=== PATIENT | female | born 1930 | race Caucasian/White ===

== ENCOUNTER 2019-08-12 06:02 | Inpatient (IN) ==
--- NOTE | 2019-07-07 14:11 | PAT Medication Instructions ---
Medication Instructions Date of Service July 07, 2019 Home Medications acetaminophen [Tylenol] 325 mg PO Q6H PRN lisinopril 2.5 mg PO QAM meloxicam 15 mg PO QAM ASK your surgeon for instructions meloxicam 15 mg PO QAM DO NOT take the morning of surgery lisinopril 2.5 mg PO QAM Take morning of surgery With a small sip of water, OTHERWISE NOTHING TO EAT OR DRINK AFTER MIDNIGHT: acetaminophen [Tylenol] 325 mg PO Q6H PRN (okay to take up to 4 hours prior to surgery if needed) Take evening before surgery acetaminophen [Tylenol] 325 mg PO Q6H PRN (if needed) Other Notes If you have any questions please call us at [phone] or [phone] or [phone] or [phone]
--- NOTE | 2019-07-08 09:05 | Anesthesiology Consultation ---
Date of Service July 08, 2019 Assessment & Plan (1) Encounter for pre-operative examination: PCP Clearance 07/03/19 = "Medically stable for JASON on 07/15/19." Chart Review Chart Review: Acceptable Risk for Surgery and Patient seen in Pre Admission Testing Teaching & Discussion Instructed NPO after midnight before surgery, except medications with 15 cc of water. Medication instructions provided according to the PAT guidelines. History Surgery Operation Date: 07/15/19 09:15 Proposed Procedures p Right Anterior Total Hip Arthroplasty - Morgan Lee DO Height/Weight Height: 5 ft 10 in Weight: 79.7 kg Allergies Allergy/AdvReac Type Severity Reaction Status Date / Time No Known Allergies Allergy Verified 07/04/19 15:45 Medications Home Medications Medication Instructions Recorded Confirmed Last Taken acetaminophen [Tylenol] 325 mg PO Q6H PRN 07/04/19 07/04/19 Unknown lisinopril 2.5 mg PO QAM 07/04/19 07/04/19 Unknown meloxicam 15 mg PO QAM 07/04/19 07/04/19 Unknown Past Medical History Medical History HTN (hypertension) Osteoarthritis Exercise / Class Metabolic Activity III < 4 Walking/Shop/Light housework (Does not do stairs, using walker for ambulation 2/2 hip pain, denies any CP or SOB) Past Surgical History Surgical History History of tooth extraction History of tubal ligation Past Anesthesia History No Hx of Anesthesia Complications and No Family Hx of Anesthesia Complications History of PONV No Hx of PONV and No Hx of Motion Sickness Social History Smoking Status: Never smoker Do You Dip or Chew Tobacco: No Hx Alcohol Use: No Hx Substance Use: No substance use type: does not use Review of Systems Pt denies any recent chest pain, shortness of breath, palpitations, cough, fever or URI. Physical Exam Vital Signs BP: 160/72 manual P: 63bpm SPO2: 96% RA T: 97.8 F R: 16 ENMT Mouth: no dental restorations, no chipped teeth and no loose teeth Thyromental Distance: > or= 3.5 Finger Breadths (3.5) Mallampati Class: II Neck normal visual inspection; neck extension not limited Respiratory normal respiratory effort Auscultation: lungs clear to auscultation bilaterally Cardiovascular Rate/Rhythm: regular rate and regular rhythm Heart Sounds: no murmur Extremities: no edema Testing Laboratory Results 07/08/19 09:23 07/08/19 09:23 PT 9.8 Seconds (9.0-12.0) 07/08/19 09:23 INR 1.0 (0.9-1.1) 07/08/19 09: APTT 25.8 Seconds (21.0-31.0) 07/08/19 09:23 Hemoglobin A1c 6.0 % (4.5-5.6) H 07/08/19 09:23 Urine Color Yellow 07/08/19 09:23 Urine Appearance Clear (Clear) 07/08/19 09:23 Urine pH 5.0 (4.5-7.5) 07/08/19 09:23 Ur Specific [place] 1.016 (1.000-1.030) 07/08/19 09:23 Urine Protein Negative (Negative) 07/08/19 09:23 Urine Glucose (UA) Negative (Negative) 07/08/19 09:23 Urine Ketones Negative (Negative) 07/08/19 09:23 Urine Nitrite Negative (Negative) 07/08/19 09:23 Ur Leukocyte Esterase Negative (Negative) 07/08/19 09:23 Blood Type B Positive 07/08/19 09:23 Antibody Screen NEGATIVE 07/08/19 09:23 07/08/19 09:23 Urine Culture - Preliminary Urine,Clean Catch Gram negative bacilli Electrocardiogram Date: 07/08/19 Sinus rhythm at 63bpm with occasional PVCs. Nonspecific T wave abnormality. Chest X-Ray Date: 07/08/19 Findings: + NAD Mild emphysema suggested.
[2019-07-08 10:13] LABS: Appearance Urine Clear (Clear); Basophils # (auto) 0.03 K/uL (0-0.2); Basophils % (auto) 0.4 %; Bilirubin Urine Negative (Negative); Blood Urine Negative (Negative); Color Urine Yellow; Eosinophils # (auto) 0.12 K/uL (0-0.5); Eosinophils % (auto) 1.7 %; Glucose Urine UA Negative (Negative); Hematocrit (blood only) 38.6 % (37-47); Hemoglobin 12.9 g/dL (12.0-16.0); Immature Granulocytes # (auto) 0.01 K/uL (0.00-0.02); Immature Granulocytes % (auto) 0.1 %; Ketones Urine Negative (Negative); Leukocyte Esterase Urine Negative (Negative); Lymphocytes % (auto) 30.3 %; Mean Corpuscular Hemoglobin 29.9 pg (25-34); Mean Corpuscular Hgb Conc 33.4 g/dL (32-36); Mean Corpuscular Volume 89.4 fL (80-100); Monocytes # (auto) 0.57 K/uL (0.11-0.59); Monocytes % (auto) 8.2 %; Neutrophils # (auto) 4.11 K/uL (1.4-6.5); Neutrophils % (auto) 59.3 %; Nitrite Urine Negative (Negative); Platelet Count 214 K/uL (130-400); Protein Urine Negative (Negative); RDW Coefficient of Variation 12.9 % (11.5-14.5); RDW Standard Deviation 42.2 fL (36.4-46.3); Red Blood Count 4.32 M/uL (4.2-5.4); Specific Gravity Urine 1.016 (1.000-1.030); Urobilinogen Urine Negative (Negative); White Blood Count 6.94 K/uL (4.8-10.8)
[2019-07-08 10:23] LABS: Partial Thromboplastin Time 25.8 Seconds (21.0-31.0); Prothrombin Time 9.8 Seconds (9.0-12.0)
--- NOTE | 2019-07-08 10:26 | XRay Report ---
XR chest Pre-admission PA/Lat CLINICAL HISTORY: Preoperative chest COMPARISON STUDY: No previous studies for comparison. FINDINGS: The cardiac and mediastinal contours are normal. There is no evidence of focal pulmonary co nsolidation. There is no evidence of failure. No pleural effusions are visualized.[The patient appear s mildly hyperinflated. Mild emphysema is suspected. Degenerative changes are present within the dors al spine. There is a suspected small hiatal hernia. IMPRESSION: No active disease in the chest. Electronically signed by: Mason Thorpe M.D. 07/08/2019 10:25 AM
[2019-07-08 11:07] LABS: Estimated Average Glucose 126 mg/dl
[2019-07-08 11:52] LABS: Albumin Level 3.8 gm/dl (3.4-5.0); BUN Creatinine Ratio 25.4 (10-20); Creatinine Clr Calc Pharmacy 47.5 ml/min; Est GFR (African American) 65.3; Est GFR (Non-African American) 56.4; Potassium 4.4 mmol/L (3.5-5.1)
--- NOTE | 2019-08-11 19:39 | History & Physical Report ---
Date of Service August 11, 2019 Assessment & Plan (1) Degenerative joint disease of right hip: I have indicated the patient for right anterior total hip replacement. The risks, benefits and complications of surgery were explained to the patient which include but not limited to infection, acute blood loss, DVT/PE, injury to nerves, vessels, bone, soft tissue, arthrofibrosis, chronic pain, failure of the prosthesis, hip dislocation, leg length discrepancy, need for additional surgery, cardiac and pulmonary events and . The patient wished to proceed with surgery and informed consent was obtained at this time. We will plan for 81mg ASA BID post-operatively for DVT prophylaxis. Upon discharge the patient will be discharged home with home health services. Appropriate clearances by PCP were obtained. Patient had multiple + UTI for e. coli and MSSA, which resulted in delaying her surgery, both treated by her PCP. Most recent UA negative for UTI. Patient currently asymptomatic for UTI. History of Present Illness Chief Complaint: Right hip pain/djd Primary Care Provider: [facility] The patient is a 88 year old female who presents with complaints of severe right hip pain and DJD. The patient has failed outpatient conservative treatments to this point which included NSAIDs, IA corticosteroid injection, PT/home exercise/walking program. The patient's pain and limited function have progressed to the point where they severely hinder their activities of daily living and they no longer tolerate exercise programs. They are requesting to proceed with total hip replacement surgery. Allergies Allergy/AdvReac Type Severity Reaction Status Date / Time No Known Allergies Allergy Verified 08/12/19 06:41 Home Medications Home Medications Medication Instructions Recorded Confirmed Type acetaminophen [Tylenol] 325 mg PO Q6H PRN 07/04/19 08/12/19 History lisinopril 2.5 mg PO QAM 07/04/19 08/12/19 History meloxicam 15 mg PO QAM 07/04/19 08/12/19 History Past Med/Surg History Medical History HTN (hypertension) Osteoarthritis Surgical History History of tooth extraction History of tubal ligation Social History Preferred Language: Belarusian Communication Ability: Effective Lead Inspector Required: No Beliefs That Will Affect Care: None Current Living Situation: Personal Care Facility Current Living Situation Comment: [facility] Other Information That Helps Us Care for You: No Feels Safe at Home: Yes Safety Concerns: Feels Safe At This Time Smoking Status: Never smoker Do You Dip or Chew Tobacco: No ; Second Hand Exposure: No ; Hx Alcohol Use: No Hx Substance Use: No Review of Systems Review of Systems: All systems reviewed & are unremarkable except as noted in HPI & below Constitutional: as per Subjective / HPI Physical Exam Physical Exam: RLE NVSI +EHL/FHL/TA/GS SILT grossly, +2 DP pulse, compartments soft NT, limited painful ROM, antalgic gait. Constitutional: WD/WN, vitals as above Eyes: PERRL, conjunctivae normal, anicteric sclerae ENMT: external ear and nose normal, oropharynx normal Neck: trachea midline, no thyromegaly Respiratory: normal respiratory effort, lungs clear to auscultation Cardiovascular: RRR, no murmur, no edema Gastrointestinal (Abdomen): normal bowel sounds, soft, nontender, no hepatosplenomegaly Musculoskeletal: no cyanosis or clubbing, extremities motor strength 5/5 Skin: no rashes, warm and dry Neurologic: patellar DTR's 2+ bilat, sensation intact Psychiatric: A+Ox3, euthymic affect Lymphatic: no cervical or axillary lymphadenopathy Results & Data Diagnostic Findings Multiple views of the hip demonstrates severe DJD with complete loss of the joint space. +osteophytes, +sclerosis, +subchondral cysts.
[~2019-08-12 06:02] MED LIST: ACETAMINOPHEN 500 MG TAB PO SCH; CEFAZOLIN 1000MG 1,000 MG/7.5 ML SYR IV SCH; CeleBREX 200 MG CAP PO SCH; GABAPENTIN 300 MG CAP PO SCH; LR 500ML BOLUS, THEN 15ML/HR IV SCH; METOCLOPRAMIDE HCL 10 MG TABLET PO SCH; ROPIVACAINE 0.5% HCL/PF 150 MG, BUPIVACAINE 0.5% MPF 30 ML, EPINEPHrine 30MG/30ML (OR U... INSTIL SCH; TRANEXAMIC ACID 1,000 MG **IV Intra-op IV SCH; TRANEXAMIC ACID 1,000 MG **IV Pre-op IV SCH; dexAMETHasone 4 MG TAB PO SCH
[2019-08-12] MEDS ORDERED: BUPIVACAINE 0.5 % 5 MG/1 ML PF 10ML VIAL ONE (06:39)
--- NOTE | 2019-08-12 06:49 | History & Physical Bridge Note ---
Date of Service August 12, 2019 History & Physical Bridge Note I have examined the patient, reviewed the History & Physical and in the interval since the performance of the History & Physical I have noted the following changes of clinical significance: no changes noted
[2019-08-12] MEDS ORDERED: PROPOFOL IV EMULSION 10 MG/ML 20 ML VIAL IV ONE ×2 (07:05→10:09)
[2019-08-12] MEDS ORDERED: LIDOCAINE HCL 2% 2 ML VIAL/AMP(20MG/ML) INFIL ONE (07:05)
[2019-08-12] MEDS ORDERED: MIDAZOLAM HCL 1 MG/ML 2ML VIAL ONE (07:05)
[2019-08-12] MEDS ORDERED: fentaNYL citrate 100 MCG/2 ML VIAL ONE (07:06)
[2019-08-12] MEDS ORDERED: PHENYLEPHRINE 100MCG/ML 5ML SYR ONE (07:16)
[2019-08-12] MEDS ORDERED: ePHEDrine sulfate 50 MG/ML SYR ONE (07:16)
[2019-08-12] MEDS ORDERED: ePHEDrine sulfate 50 MG/ML AMP IV PRN (08:25)
[2019-08-12] MEDS ORDERED: ATROPINE SULFATE 0.1 MG/ML 10ML SYR IV PRN (08:25)
[2019-08-12] MEDS ORDERED: fentaNYL citrate 100 MCG/2 ML VIAL IV PRN (08:25)
[2019-08-12] MEDS ORDERED: ONDANSETRON INJ 2 MG/ML 2 ML VIAL IV PRN ×2 (08:25→13:31)
[2019-08-12] MEDS ORDERED: ORTHO JOINT ANESTHETIC ONE (08:56)
[2019-08-12] MEDS ORDERED: BACITRACIN INJ 50,000 UNIT VIAL ONE (08:56)
[2019-08-12] MEDS ORDERED: CEFAZOLIN 250 MG/ML 1 GM VIAL ONE (09:40)
[2019-08-12] MEDS ORDERED: CEFAZOLIN 1000MG 1,000 MG/7.5 ML SYR IV ONE (10:38)
--- NOTE | 2019-08-12 11:56 | Operative Report ---
Post Operative Report Pre & Post Diagnosis Operation Date: 07/15/19 09:15 <No data on this case meets the specified criteria> Operation Date: 08/12/19 09:00 Pre-Op Diagnosis: RIGHT HIP OSTEOARTHRITIS Post-Op Diagnosis: RIGHT HIP OSTEOARTHRITIS I identified the patient and participated in the time-out.: Yes Procedure Operation Date: 07/15/19 09:15 <No data on this case meets the specified criteria> Operation Date: 08/12/19 09:00 Actual Procedures p Right Anterior Total Hip Arthroplasty(Right) - Morgan Lee DO Surgeon Morgan Lee DO Thread Tool Grinder Set Up Operator Edy [place] Estimated Blood Loss 165 Findings Consistent with Post-Op Diagnosis Fluids 1100 cc LR Specimens Femoral head Anesthesia Type Spinal MAC Complications none Disposition Disposition: Recovery Room Indications The patient is a 88-year-old female who presents with severe progressive right hip DJD who has failed outpatient conservative treatments. I indicated the patient for a anterior total hip replacement and the risks and benefits were explained in detail which include but not limited to infection, bleeding, blood clot, damage to surrounding bone, nerves, vessels, soft tissue, hip dislocation, failure of the prosthesis, leg length discrepancy, need for additional surgery and . The patient agreed to proceed with replacement of the hip and informed consent was obtained. Appropriate clearances were obtained. Description of Procedure COMPONENTS USED: [employer] hip system: Acetabulum size 58, femur size 11 standard offset, femoral head 36+0, liner [id number], acetabular screw 25 mm x 2. DESCRIPTION OF PROCEDURE: Following satisfactory spinal anesthesia, the patient was placed supine on the OR table. The left leg was placed in the well leg hightower and the right leg in the traction device. The right leg was prepared with ChloraPrep and draped sterilely. A surgical timeout was performed, patient identified and site darrius verified. Appropriate antibiotics were given. A standard anterior approach in the interval between the sartorius and tensor muscles was performed. Dissection was carried down through subcutaneous tissues. Electrocautery was utilized for hemostasis. Circumflex femoral vessels were identified, tied and ligated. The anterior capsular fat pad was removed and the capsulotomy was performed revealing the arthritic femoral neck and head. A femoral neck cut was made with reciprocating saw and the bone fragments removed. The acetabular self-retraining retractor was placed. Acetabular reaming was completed under fluoroscopic guidance, a 58 shell was impacted into an anatomic position and secured with a dome screw. Local anesthetic was placed and following irrigation, the polyethylene liner was placed. The femur was placed into position of external rotation, extension and adduction. Femoral canal was prepared up to the size 11 standard offset. Trial reduction with a +0 neck length head showed good soft tissue tension, leg lengths restored, and good fit and fill of the proximal canal using fluoroscopic landmarks. The hip was dislocated. The trial component was removed. The final implant was placed. The hip was irrigated with sterile saline solution and reduced. A Betadine soak was performed. After 3 minutes, the hip was once more irrigated with copious sterile saline solution with bacitracin. Princess-incisional soft tissue was injected utilizing [place] [employer]omix which includes a combination of Ropivicaine 0.5% 150mg, Bupivicaine 0.5%/Epinephrine 1:200,000 30ml, Toradol 30mg, Dexamethasone 4mg, Ketamine 10mg, Clonidine 100mcg and NSS 30ml solution. The capsule was then closed with 1-0 Vicryl interrupted figure of eight sutures. The fascia was closed with a running suture of #1 Vicryl, the subcutaneous tissues with 2-0 Vicryl and the skin with cristian. Sterile dressing applied which included Jane incisional VAC. The patient tolerated the procedure well and was transported to PACU in stable condition. Due to the complex nature of the procedure, the entire surgery was performed with the operational assistance of Edy Rock PA-C. The golf course assistant, under direct supervision, was involved in the actual performance of all aspects of the surgical procedure including patient positioning, hemostasis, tissue retraction, instrument management and wound closure. I attest to the content of the Intraoperative Record and any orders documented therein. Any exceptions are noted below.
--- NOTE | 2019-08-12 11:57 | Post Operative Brief Note ---
Immediate Post Op Note v1 Date of Surgery August 12, 2019 Pre & Post Diagnosis Operation Date: 07/15/19 09:15 <No data on this case meets the specified criteria> Operation Date: 08/12/19 09:00 Pre-Op Diagnosis: RIGHT HIP OSTEOARTHRITIS Post-Op Diagnosis: RIGHT HIP OSTEOARTHRITIS I identified the patient and participated in the time-out.: Yes Procedure Operation Date: 07/15/19 09:15 <No data on this case meets the specified criteria> Operation Date: 08/12/19 09:00 Actual Procedures p Right Anterior Total Hip Arthroplasty(Right) - Morgan Lee DO Surgeon Morgan Lee DO Mandrel Press Hand [place] Estimated Blood Loss 165 Findings Consistent with Post-Op Diagnosis Fluids 1100 cc LR Specimens Femoral head Anesthesia Type Spinal MAC Complications none Disposition Disposition: Recovery Room Overlapping Procedure I was present for: the critical portions of procedure. I was immediately available: during the entire case. Back up surgeon: was not required during procedure.
--- NOTE | 2019-08-12 12:23 | Anesthesiology Progress Note ---
Date of Service August 12, 2019 Anesthesia Post Procedure Vital Signs Vital Signs: Temp Pulse Resp BP Pulse Ox 08/12/19 06:47 36.8 C 94 H 15 155/67 H 100 Transfer of Care Handoff Completed per policy Notes Mental Status: alert / awake / arousable Patient Amnestic to Procedure: Yes Nausea / Vomiting: adequately controlled Pain: adequately controlled Airway Patency, RR, SpO2: stable & adequate BP & HR: stable & adequate Hydration State: stable & adequate Neuraxial Anesthesia: was administered and sensory block is resolving Anesthetic Complications: no major complications apparent
--- NOTE | 2019-08-12 12:37 | Fluoroscopy Report ---
FL hip RT 1V CLINICAL HISTORY: RT ANTERIOR HP COMPARISON STUDY: None. FLUOROSCOPY TIME: 34 seconds. FINDINGS: 2 fluoroscopic spot images of the right hip demonstrate a right total hip arthroplasty. Andre núñez appears intact. No fracture or dislocation. IMPRESSION: Status post right total hip arthroplasty. No evidence for hardware complication. ACT 112: Negative or not required by law. Electronically signed by: Cristobal Broderick M.D. 08/12/2019 12:35 PM
--- NOTE | 2019-08-12 13:24 | XRay Report ---
XR hip 1V RT w pelvis CLINICAL HISTORY: IN PACU - A/P PELVIS and LATERAL HIP COMPARISON: None. DISCUSSION: Anatomic alignment posttotal right hip arthroplasty. Could contact between prosthetic and underlying bone. Expected postoperative soft tissue change. IMPRESSION: Anatomic alignment posttotal right hip arthroplasty. ACT 112: Negative or not required by law. The above report was generated using voice recognition software. It may contain grammatical, syntax or spelling errors. Electronically signed by: Danielito Faulkner M.D. 08/12/2019 1:23 PM
[2019-08-12] MEDS ORDERED: HYDROmorphone INJ 0.5 MG/0.5 ML SYR IV PRN (13:31)
[2019-08-12] MEDS ORDERED: NALOXONE HCL 0.4 MG/1 ML VIAL/CARP IV PRN (13:31)
[2019-08-12] MEDS ORDERED: MAGNESIUM HYDROXIDE SUSP 30 ML UDC PO PRN (13:31)
[2019-08-12] MEDS ORDERED: METOCLOPRAMIDE HCL INJ 5 MG/ML 2 ML VIAL IV PRN (13:31)
[2019-08-12] MEDS ORDERED: bisacodyL 10 MG SUPP PR PRN (13:31)
[2019-08-12] MEDS: ACETAMINOPHEN 500 MG TAB PO SCH ×2 (14:39→21:22)
[2019-08-12] MEDS: SODIUM CHLORIDE 0.9% 1000ML 1,000 ML IV SCH (14:39)
[2019-08-12] MEDS: TRAMADOL HCL 50 MG TABLET PO PRN (15:44)
[2019-08-12 16:52] LABS: Appearance Urine Clear (Clear); Bilirubin Urine Negative (Negative); Blood Urine Negative (Negative); Color Urine Yellow; Glucose Urine UA 1+ (Negative); Ketones Urine Negative (Negative); Leukocyte Esterase Urine Negative (Negative); Nitrite Urine Negative (Negative); Protein Urine Negative (Negative); Specific Gravity Urine 1.015 (1.000-1.030); Urobilinogen Urine Negative (Negative)
[2019-08-12] MEDS: CEFAZOLIN 2000MG 2,000 MG/15 ML SYR IV SCH (17:34)
--- NOTE | 2019-08-12 18:43 | Orthopedic Progress Note ---
Date of Service August 12, 2019 Assessment & Plan (1) Degenerative joint disease of right hip: s/p Right Anterior JASON -ancef x 24 -DVT ppx: SCDs, TEDs, 81mg ASA BID -WBAT RLE -PT/OT -PO XR demonstrates a well aligned well fixed prothesis without fracture/disloaction -am labs -DC planning Subjective Post Operative Progress Note Patient seen sitting up in bed, comfortable, denies complaints, pain well controlled, no acute issues. Review of Systems Review of Systems: All systems reviewed & are unremarkable except as noted in HPI & below Constitutional: as per Subjective / HPI Physical Exam Physical Exam: RLE NVSI +EHL/FHL/TA/GS SILT grossly, +2 DP pulse, compartments soft NT, dressing cdi. Constitutional: WD/WN, vitals as above Results & Data Vital Signs (Past 12 Hours) Vital Signs Temp Pulse Pulse Resp BP Pulse Ox 08/12/19 16:15 36.2 C L 65 16 163/70 H 96 08/12/19 15:19 36.3 C L 67 16 164/68 H 99 08/12/19 14:20 66 16 183/77 H 99 08/12/19 13:50 59 L 16 158/77 H 100 08/12/19 13:20 36.2 C L 62 18 142/70 H 97 08/12/19 13:00 58 L 15 148/62 H 100 08/12/19 12:45 52 L 18 134/52 L 100 08/12/19 12:35 36.5 C 57 L 16 130/72 100 08/12/19 12:25 57 L 15 131/59 L 99 08/12/19 12:15 62 25 H 132/60 100 08/12/19 12:08 36.3 C L 67 22 115/60 98 08/12/19 06:47 36.8 C 94 H 15 155/67 H 100
[2019-08-12] MEDS: SENNA 8.6 MG TAB PO SCH (21:21)
[2019-08-12] MEDS: DOCUSATE SODIUM 100 MG CAP PO SCH (21:21)
[2019-08-13] MEDS: CEFAZOLIN 2000MG 2,000 MG/15 ML SYR IV SCH (00:17)
[2019-08-13] MEDS: TRAMADOL HCL 50 MG TABLET PO PRN ×2 (00:29→16:08)
[2019-08-13] MEDS: SODIUM CHLORIDE 0.9% 1000ML 1,000 ML IV SCH (01:39)
[2019-08-13] MEDS: ACETAMINOPHEN 500 MG TAB PO SCH ×3 (05:56→21:47)
[2019-08-13 06:17] LABS: Basophils # (auto) 0.01 K/uL (0-0.2); Basophils % (auto) 0.1 %; Hematocrit (blood only) 28.4 % (37-47); Hemoglobin 9.9 g/dL (12.0-16.0); Immature Granulocytes # (auto) 0.03 K/uL (0.00-0.02); Immature Granulocytes % (auto) 0.3 %; Lymphocytes # (auto) 1.09 K/uL (1.2-3.4); Lymphocytes % (auto) 11.1 %; Mean Corpuscular Hemoglobin 30.7 pg (25-34); Mean Corpuscular Hgb Conc 34.9 g/dL (32-36); Mean Corpuscular Volume 87.9 fL (80-100); Monocytes # (auto) 0.62 K/uL (0.11-0.59); Monocytes % (auto) 6.3 %; Neutrophils % (auto) 82.2 %; Platelet Count 193 K/uL (130-400); Red Blood Count 3.23 M/uL (4.2-5.4); White Blood Count 9.85 K/uL (4.8-10.8)
[2019-08-13 06:22] LABS: Calcium 8.4 mg/dl (8.5-10.1); Creatinine Clr Calc Pharmacy 43.7 ml/min; Est GFR (African American) 59.1
[2019-08-13] MEDS: MULTIVITAMIN TAB PO SCH (08:36)
[2019-08-13] MEDS: DOCUSATE SODIUM 100 MG CAP PO SCH ×2 (08:36→20:48)
[2019-08-13] MEDS: ASPIRIN 81 MG ECTAB PO SCH ×2 (08:36→20:48)
--- NOTE | 2019-08-13 09:04 | Orthopedic Progress Note ---
Date of Service August 13, 2019 Assessment & Plan (1) Degenerative joint disease of right hip: Postop day 1 s/p Right Anterior JASON -ancef x 24 then DC. -DVT ppx: SCDs, TEDs, 81mg ASA BID -Partial weightbearing RLE -PT/OT -PO XR demonstrates a well aligned well fixed prothesis without fract ure/disloaction -am labs: hgb 9.9. -DC planning -patient unsure at this time. May require a short rehab stay prior to returning to [facility]. Supervising Physician Co-Signing Physician Notes Patient seen, agree with above assessment and plan. Subjective Patient currently lying in bed. She is awake and alert. She is in good spirits. She states that she is having some mild pain in the groin area with ambulation but is not keeping her from ambulating. No other complaints at this time. She denies any shortness of breath, chest pain, lightheadedness. Physical Exam Physical Exam: Prevena external wound VAC is intact and functioning. She has some mild bruising around the proximal portion of the dressing. Thigh is soft and nontender. Calves are soft and nontender. Neurovascular is intact. Toes are mobile. She has good dorsiflexion and plantarflexion of the right lower extremity. Leg lengths appear equal. Results & Data Vital Signs (Past 12 Hours) Vital Signs Temp Pulse Resp BP BP Pulse Ox 08/13/19 07:25 36.5 C 62 16 151/70 H 95 08/13/19 02:41 36.5 C 58 L 16 164/71 H 98 08/13/19 00:17 174/82 H 174/75 H 08/12/19 23:21 36.4 C L 57 L 16 197/74 H 99 Laboratory Results Laboratory Results WBC 9.85 K/uL (4.8-10.8) 08/13/19 05:12 RBC 3.23 M/uL (4.2-5.4) L 08/13/19 05:12 Hgb 9.9 g/dL (12.0-16.0) L 08/13/19 05:12 Hct 28.4 % (37-47) L 08/13/19 05:12 MCV 87.9 fL (80-100) 08/13/19 05:12 MCH 30.7 pg (25-34) 08/13/19 05:12 MCHC 34.9 g/dL (32-36) 08/13/19 05:12 RDW Std Deviation 42.2 fL (36.4-46.3) 07/08/19 09:23 RDW Coeff of [place] 12.9 % (11.5-14.5) 07/08/19 09:23 Plt Count 193 K/uL (130-400) 08/13/19 05:12 MPV 10.0 fL (7.4-10.4) 07/08/19 09:23 Immature Gran % (Auto) 0.3 % 08/13/19 05:12 Neut % (Auto) 82.2 % 08/13/19 05:12 Lymph % (Auto) 11.1 % 08/13/19 05:12 Cross % (Auto) 6.3 % 08/13/19 05:12 Eos % (Auto) 0.0 % 08/13/19 05:12 Baso % (Auto) 0.1 % 08/13/19 05:12 Immature Gran # (Auto) 0.03 K/uL (0.00-0.02) H 08/13/19 05:12 Neut # (Auto) 8.10 K/uL (1.4-6.5) H 08/13/19 05:12 Lymph # (Auto) 1.09 K/uL (1.2-3.4) L 08/13/19 05:12 Cross # (Auto) 0.62 K/uL (0.11-0.59) H 08/13/19 05:12 Eos # (Auto) 0.00 K/uL (0-0.5) 08/13/19 05:12 Baso # (Auto) 0.01 K/uL (0-0.2) 08/13/19 05:12 PT 9.8 Seconds (9.0-12.0) 07/08/19 09:23 INR 1.0 (0.9-1.1) 07/08/19 09:23 APTT 25.8 Seconds (21.0-31.0) 07/08/19 09:23 PTT Ratio 1.0 07/08/19 09:23 Sodium 139 mmol/L (136-145) 08/13/19 05:12 Potassium 5.4 mmol/L (3.5-5.1) H 08/13/19 06:50 Chloride 111 mmol/L (98-107) H 08/13/19 05:12 Carbon Dioxide 21 mmol/L (21-32) 08/13/19 05:12 Anion Gap 7.0 (3-11) 08/13/19 05:12 BUN 27 mg/dl (7-18) H 08/13/19 05:12 Creatinine 1.00 mg/dl (0.6-1.2) 08/13/19 05:12 Est Cr Clr Drug Dosing 43.7 ml/min 08/13/19 05:12 Est GFR ( Amer) 59.1 08/13/19 05:12 Est GFR (Non-Af Amer) 51.0 08/13/19 05:12 BUN/Creatinine Ratio 27.0 (10-20) H 08/13/19 05:12 Glucose 125 mg/dl (70-99) H 08/13/19 05:12 Estimat Average Glucose 126 mg/dl 07/08/19 09:23 Hemoglobin A1c 6.0 % (4.5-5.6) H 07/08/19 09:23 Calcium 8.4 mg/dl (8.5-10.1) L 08/13/19 05:12 Albumin 3.8 gm/dl (3.4-5.0) 07/08/19 09:23 Urine Color Yellow 08/12/19 16:37 Urine Appearance Clear (Clear) 08/12/19 16:37 Urine pH 5.0 (4.5-7.5) 08/12/19 16:37 Ur Specific [place] 1.015 (1.000-1.030) 08/12/19 16:37 Urine Protein Negative (Negative) 08/12/19 16:37 Urine Glucose (UA) 1+ (Negative) H 08/12/19 16:37 Urine Ketones Negative (Negative) 08/12/19 16:37 Urine Blood Negative (Negative) 08/12/19 16:37 Urine Nitrite Negative (Negative) 08/12/19 16:37 Urine Bilirubin Negative (Negative) 08/12/19 16:37 Urine Urobilinogen Negative (Negative) 08/12/19 16:37 Ur Leukocyte Esterase Negative (Negative) 08/12/19 16:37 Blood Type B Positive 07/08/19 09:23 Antibody Screen NEGATIVE 07/08/19 09:23
[2019-08-13] MEDS ORDERED: NURSING DECISION MEDICATION ONE (13:10)
[2019-08-13] MEDS ORDERED: COUGH DROP (SUGAR FREE) LOZ 24 LOZ/1 BOX BUCCAL PRN (13:17)
[2019-08-13] MEDS: SENNA 8.6 MG TAB PO SCH ×2 (20:47→20:51)
[2019-08-14 05:51] LABS: Basophils # (auto) 0.02 K/uL (0-0.2); Basophils % (auto) 0.3 %; Eosinophils # (auto) 0.06 K/uL (0-0.5); Eosinophils % (auto) 0.8 %; Hematocrit (blood only) 27.1 % (37-47); Immature Granulocytes # (auto) 0.02 K/uL (0.00-0.02); Immature Granulocytes % (auto) 0.3 %; Lymphocytes % (auto) 32.9 %; Mean Corpuscular Hgb Conc 33.2 g/dL (32-36); Mean Corpuscular Volume 90.3 fL (80-100); Mean Platelet Volume 9.1 fL (7.4-10.4); Monocytes # (auto) 0.67 K/uL (0.11-0.59); Monocytes % (auto) 9.2 %; Neutrophils # (auto) 4.13 K/uL (1.4-6.5); Neutrophils % (auto) 56.5 %; Platelet Count 199 K/uL (130-400); RDW Coefficient of Variation 13.4 % (11.5-14.5); RDW Standard Deviation 44.2 fL (36.4-46.3)
[2019-08-14 06:25] LABS: BUN Creatinine Ratio 30.1 (10-20); Calcium 8.1 mg/dl (8.5-10.1); Est GFR (African American) 66.2; Est GFR (Non-African American) 57.1; Potassium 4.7 mmol/L (3.5-5.1)
[2019-08-14] MEDS: ACETAMINOPHEN 500 MG TAB PO SCH ×3 (06:26→22:13)
--- NOTE | 2019-08-14 07:54 | Orthopedic Progress Note ---
Date of Service August 14, 2019 Assessment & Plan (1) Degenerative joint disease of right hip: Postop day 2 s/p Right Anterior JASON -DVT ppx: SCDs, TEDs, 81mg ASA BID -Partial weightbearing RLE -PT/OT -PO XR demonstrates a well aligned well fixed prothesis without fracture/disloaction -am labs: hgb 9.0. Continues to be asymptomatic. -DC planning -Case management has spoken to the patient and her daughters. I believe a short rehab stay prior to returning to her assisted care facility w ould be [facility]. Case management has discussed [facility] with a backup plan for [facility] if this is denied. Await authorization. Subjective Postop day 2 status post right anterior total hip arthroplasty Patient currently lying in bed awake and alert. She is in good spirits. No overt complaints. Pain is controlled. Denies shortness of breath, chest pain, lightheadedness. She states that she has had a bowel movement. Physical Exam Physical Exam: Prevena wound VAC intact and functioning. Continues with some mild development of some bruising around the dressing itself consistent with surgery.. No overt erythema. Thighs soft and nontender. Calves are soft and nontender. Neurovascular is intact. Toes are mobile with good dorsiflexion/plantarflexion of the foot and ankle. Leg lengths appear equal. Results & Data Vital Signs (Past 12 Hours) Vital Signs Temp Pulse Pulse Resp BP BP Pulse Ox 08/14/19 07:37 36.6 C 61 19 158/68 H 94 08/13/19 22:59 36.6 C 72 16 153/59 H 94 08/13/19 20:58 70 163/71 H 96 Laboratory Results Laboratory Results WBC 7.30 K/uL (4.8-10.8) 08/14/19 04:53 RBC 3.00 M/uL (4.2-5.4) L 08/14/19 04:53 Hgb 9.0 g/dL (12.0-16.0) L 08/14/19 04:53 Hct 27.1 % (37-47) L 08/14/19 04:53 MCV 90.3 fL (80-100) 08/14/19 04:53 MCH 30.0 pg (25-34) 08/14/19 04:53 MCHC 33.2 g/dL (32-36) 08/14/19 04:53 RDW Std Deviation 44.2 fL (36.4-46.3) 08/14/19 04:53 RDW Coeff of Bobo 13.4 % (11.5-14.5) 08/14/19 04:53 Plt Count 199 K/uL (130-400) 08/14/19 04:53 MPV 9.1 fL (7.4-10.4) 08/14/19 04:53 Immature Gran % (Auto) 0.3 % 08/14/19 04:53 Neut % (Auto) 56.5 % 08/14/19 04:53 Lymph % (Auto) 32.9 % 08/14/19 04:53 [place] % (Auto) 9.2 % 08/14/19 04:53 Eos % (Auto) 0.8 % 08/14/19 04:53 Baso % (Auto) 0.3 % 08/14/19 04:53 Immature Gran # (Auto) 0.02 K/uL (0.00-0.02) 08/14/19 04:53 Neut # (Auto) 4.13 K/uL (1.4-6.5) 08/14/19 04:53 Lymph # (Auto) 2.40 K/uL (1.2-3.4) 08/14/19 04:53 [place] # (Auto) 0.67 K/uL (0.11-0.59) H 08/14/19 04:53 Eos # (Auto) 0.06 K/uL (0-0.5) 08/14/19 04:53 Baso # (Auto) 0.02 K/uL (0-0.2) 08/14/19 04:53 PT 9.8 Seconds (9.0-12.0) 07/08/19 09:23 INR 1.0 (0.9-1.1) 07/08/19 09:23 APTT 25.8 Seconds (21.0-31.0) 07/08/19 09:23 PTT Ratio 1.0 07/08/19 09:23 Sodium 139 mmol/L (136-145) 08/14/19 04:53 Potassium 4.7 mmol/L (3.5-5.1) 08/14/19 04:53 Chloride 112 mmol/L (98-107) H 08/14/19 04:53 Carbon Dioxide 21 mmol/L (21-32) 08/14/19 04:53 Anion Gap 6.0 (3-11) 08/14/19 04:53 BUN 27 mg/dl (7-18) H 08/14/19 04:53 Creatinine 0.91 mg/dl (0.6-1.2) 08/14/19 04:53 Est Cr Clr Drug Dosing 48.0 ml/min 08/14/19 04:53 Est GFR ( Amer) 66.2 08/14/19 04:53 Est GFR (Non-Af Amer) 57.1 08/14/19 04:53 BUN/Creatinine Ratio 30.1 (10-20) H 08/14/19 04:53 Glucose 94 mg/dl (70-99) 08/14/19 04:53 Estimat Average Glucose 126 mg/dl 07/08/19 09:23 Hemoglobin A1c 6.0 % (4.5-5.6) H 07/08/19 09:23 Calcium 8.1 mg/dl (8.5-10.1) L 08/14/19 04:53 Albumin 3.8 gm/dl (3.4-5.0) 07/08/19 09:23 Urine Color Yellow 08/12/19 16:37 Urine Appearance Clear (Clear) 08/12/19 16:37 Urine pH 5.0 (4.5-7.5) 08/12/19 16:37 Ur Specific [place] 1.015 (1.000-1.030) 08/12/19 16:37 Urine Protein Negative (Negative) 08/12/19 16:37 Urine Glucose (UA) 1+ (Negative) H 08/12/19 16:37 Urine Ketones Negative (Negative) 08/12/19 16:37 Urine Blood Negative (Negative) 08/12/19 16:37 Urine Nitrite Negative (Negative) 08/12/19 16:37 Urine Bilirubin Negative (Negative) 08/12/19 16:37 Urine Urobilinogen Negative (Negative) 08/12/19 16:37 Ur Leukocyte Esterase Negative (Negative) 08/12/19 16:37 Blood Type B Positive 07/08/19 09:23 Antibody Screen NEGATIVE 07/08/19 09:23
--- NOTE | 2019-08-14 08:27 | Anesthesiology Progress Note ---
Date of Service August 14, 2019 Anesthesia Post Procedure Vital Signs Vital Signs: Temp Pulse Pulse Resp BP BP Pulse Ox 08/14/19 07:37 36.6 C 61 19 158/68 H 94 08/13/19 22:59 36.6 C 72 16 153/59 H 94 08/13/19 20:58 70 163/71 H 96 08/13/19 16:01 64 178/72 H 95 08/13/19 15:08 36.6 C 62 16 187/72 H 99 08/13/19 11:55 36.8 C 65 16 160/66 H 97 Pain Intensity Right Hip: Pain Intensity: 6 Notes Mental Status: alert / awake / arousable Nausea / Vomiting: adequately controlled Pain: adequately controlled Airway Patency, RR, SpO2: stable & adequate BP & HR: stable & adequate Hydration State: stable & adequate Neuraxial Anesthesia: was administered and sensory block resolved Anesthetic Complications: no major complications apparent and Pt Satisfied with anesthetic care
[2019-08-14] MEDS: ASPIRIN 81 MG ECTAB PO SCH ×2 (08:28→20:58)
[2019-08-14] MEDS: DOCUSATE SODIUM 100 MG CAP PO SCH ×2 (08:28→20:57)
[2019-08-14] MEDS: MULTIVITAMIN TAB PO SCH (08:28)
[2019-08-14] MEDS: TRAMADOL HCL 50 MG TABLET PO PRN (13:40)
[2019-08-14] MEDS: SENNA 8.6 MG TAB PO SCH (20:58)
[2019-08-15] MEDS: TRAMADOL HCL 50 MG TABLET PO PRN ×2 (04:17→08:19)
[2019-08-15 05:13] LABS: Basophils # (auto) 0.04 K/uL (0-0.2); Basophils % (auto) 0.5 %; Eosinophils # (auto) 0.13 K/uL (0-0.5); Eosinophils % (auto) 1.7 %; Hematocrit (blood only) 26.7 % (37-47); Hemoglobin 9.1 g/dL (12.0-16.0); Immature Granulocytes # (auto) 0.02 K/uL (0.00-0.02); Immature Granulocytes % (auto) 0.3 %; Lymphocytes # (auto) 2.27 K/uL (1.2-3.4); Lymphocytes % (auto) 29.9 %; Mean Corpuscular Hemoglobin 30.5 pg (25-34); Mean Corpuscular Hgb Conc 34.1 g/dL (32-36); Mean Corpuscular Volume 89.6 fL (80-100); Mean Platelet Volume 9.2 fL (7.4-10.4); Monocytes # (auto) 0.75 K/uL (0.11-0.59); Monocytes % (auto) 9.9 %; Neutrophils # (auto) 4.38 K/uL (1.4-6.5); Neutrophils % (auto) 57.7 %; Platelet Count 190 K/uL (130-400); RDW Coefficient of Variation 13.4 % (11.5-14.5); RDW Standard Deviation 43.5 fL (36.4-46.3); Red Blood Count 2.98 M/uL (4.2-5.4); White Blood Count 7.59 K/uL (4.8-10.8)
[2019-08-15] MEDS: ACETAMINOPHEN 500 MG TAB PO SCH ×2 (05:41→13:31)
[2019-08-15 05:55] LABS: BUN Creatinine Ratio 29.7 (10-20); Calcium 8.3 mg/dl (8.5-10.1); Creatinine Clr Calc Pharmacy 50.8 ml/min; Est GFR (African American) 70.9; Est GFR (Non-African American) 61.2; Potassium 4.3 mmol/L (3.5-5.1)
[2019-08-15] MEDS: DOCUSATE SODIUM 100 MG CAP PO SCH (07:41)
[2019-08-15] MEDS: ASPIRIN 81 MG ECTAB PO SCH (07:42)
[2019-08-15] MEDS: MULTIVITAMIN TAB PO SCH (07:42)
--- NOTE | 2019-08-15 10:09 | Orthopedic Progress Note ---
Date of Service August 15, 2019 Assessment & Plan (1) Degenerative joint disease of right hip: Postop day 3 s/p Right Anterior JASON -Pain control issues-plans will be to hold her tramadol and to give her a one- time dose of Toradol 15 mg IV. We will place her on 1 tablet of oxycodone every 4 hours as needed. I will discuss this with Dr. Lee. I reiterated to the patient that she needs to continue to maintain some pain medication in her system during this initial phase. If pain control is adequate later today and she is ambulating in a better fashion, we will plan [facility]. -DVT ppx: SCDs, TEDs, 81mg ASA BID -Partial weightbearing RLE -PT/OT -PO XR demonstrates a well aligned well fixed prothesis without fracture/disloaction -am labs: as above -DC planning - [facility] addendum: Case discussed with Dr Lee. Recheck hip xray. Continue current pain regimen as ordered above. Subjective Postop day 3 status post right anterior total hip arthroplasty. Patient is currently walking out of the bathroom after cleaning up. She appears to be in moderate pain with ambulation. She is ambulating slowly and does not appear to be having difficulty with the ambulation but complains of pain in the groin and also around the incisional area. Her daughter is present and feels that she is having more pain this morning that she had previously. She apparently has not been taking her pain medications regularly other than her Tylenol. Speaking to nursing, the patient had gone 18 hours between dosages of her tramadol at one point. We discussed that she needed to continue to take her medicine early on in this stage on a regular basis. Patient understands. She denies any shortness of breath, chest pain, lightheadedness. She denies calf tenderness. She has no other complaints at this time. Physical Exam Physical Exam: Prevena wound VAC is intact and functioning. Ecchymosis as noted before. Thigh is soft and nontender. Calves are soft and nontender. Neurovascular is intact. Toes are mobile and she has good dorsiflexion and plantarflexion of the operative foot. Leg lengths appear equal. Results & Data Vital Signs (Past 12 Hours) Vital Signs Temp Pulse Pulse Resp BP BP Pulse Ox 08/15/19 08:59 36.4 C L 54 L 59 L 18 150/60 H 170/57 H 94 08/15/19 07:27 36.4 C L 59 L 18 150/60 H 94 08/15/19 06:33 36.8 C 54 L 16 135/65 96 08/15/19 03:34 154/58 H 08/14/19 23:18 36.9 C 70 16 170/57 H 96 Laboratory Results Laboratory Results WBC 7.59 K/uL (4.8-10.8) 08/15/19 04:46 RBC 2.98 M/uL (4.2-5.4) L 08/15/19 04:46 Hgb 9.1 g/dL (12.0-16.0) L 08/15/19 04:46 Hct 26.7 % (37-47) L 08/15/19 04:46 MCV 89.6 fL (80-100) 08/15/19 04:46 MCH 30.5 pg (25-34) 08/15/19 04:46 MCHC 34.1 g/dL (32-36) 08/15/19 04:46 RDW Std Deviation 43.5 fL (36.4-46.3) 08/15/19 04:46 RDW Coeff of Bobo 13.4 % (11.5-14.5) 08/15/19 04:46 Plt Count 190 K/uL (130-400) 08/15/19 04:46 MPV 9.2 fL (7.4-10.4) 08/15/19 04:46 Immature Gran % (Auto) 0.3 % 08/15/19 04:46 Neut % (Auto) 57.7 % 08/15/19 04:46 Lymph % (Auto) 29.9 % 08/15/19 04:46 [place] % (Auto) 9.9 % 08/15/19 04:46 Eos % (Auto) 1.7 % 08/15/19 04:46 Baso % (Auto) 0.5 % 08/15/19 04:46 Immature Gran # (Auto) 0.02 K/uL (0.00-0.02) 08/15/19 04:46 Neut # (Auto) 4.38 K/uL (1.4-6.5) 08/15/19 04:46 Lymph # (Auto) 2.27 K/uL (1.2-3.4) 08/15/19 04:46 [place] # (Auto) 0.75 K/uL (0.11-0.59) H 08/15/19 04:46 Eos # (Auto) 0.13 K/uL (0-0.5) 08/15/19 04:46 Baso # (Auto) 0.04 K/uL (0-0.2) 08/15/19 04:46 PT 9.8 Seconds (9.0-12.0) 07/08/19 09:23 INR 1.0 (0.9-1.1) 07/08/19 09:23 APTT 25.8 Seconds (21.0-31.0) 07/08/19 09: PTT Ratio 1.0 07/08/19 09:23 Sodium 139 mmol/L (136-145) 08/15/19 04:46 Potassium 4.3 mmol/L (3.5-5.1) 08/15/19 04:46 Chloride 111 mmol/L (98-107) H 08/15/19 04:46 Carbon Dioxide 24 mmol/L (21-32) 08/15/19 04:46 Anion Gap 5.0 (3-11) 08/15/19 04:46 BUN 26 mg/dl (7-18) H 08/15/19 04:46 Creatinine 0.86 mg/dl (0.6-1.2) 08/15/19 04:46 Est Cr Clr Drug Dosing 50.8 ml/min 08/15/19 04:46 Est GFR ( Amer) 70.9 08/15/19 04:46 Est GFR (Non-Af Amer) 61.2 08/15/19 04:46 BUN/Creatinine Ratio 29.7 (10-20) H 08/15/19 04:46 Glucose 96 mg/dl (70-99) 08/15/19 04:46 Estimat Average Glucose 126 mg/dl 07/08/19 09:23 Hemoglobin A1c 6.0 % (4.5-5.6) H 07/08/19 09:23 Calcium 8.3 mg/dl (8.5-10.1) L 08/15/19 04:46 Albumin 3.8 gm/dl (3.4-5.0) 07/08/19 09:23 Urine Color Yellow 08/12/19 16:37 Urine Appearance Clear (Clear) 08/12/19 16:37 Urine pH 5.0 (4.5-7.5) 08/12/19 16:37 Ur Specific [place] 1.015 (1.000-1.030) 08/12/19 16:37 Urine Protein Negative (Negative) 08/12/19 16:37 Urine Glucose (UA) 1+ (Negative) H 08/12/19 16:37 Urine Ketones Negative (Negative) 08/12/19 16:37 Urine Blood Negative (Negative) 08/12/19 16:37 Urine Nitrite Negative (Negative) 08/12/19 16:37 Urine Bilirubin Negative (Negative) 08/12/19 16:37 Urine Urobilinogen Negative (Negative) 08/12/19 16:37 Ur Leukocyte Esterase Negative (Negative) 08/12/19 16:37 Blood Type B Positive 07/08/19 09:23 Antibody Screen NEGATIVE 07/08/19 09:23
[2019-08-15] MEDS ORDERED: KETOROLAC TROMETHAMINE 15 MG/ML VIAL IV ONE (10:15)
[2019-08-15] MEDS: OXYCODONE HCL IR 5 MG TAB (IMMEDIATE RELEASE) PO PRN ×2 (10:15→15:11)
--- NOTE | 2019-08-15 12:53 | XRay Report ---
XR hip RT 2V w pelvis HISTORY: 88 years-old Female hip pain s/p R JASON right hip total joint arthroplasty COMPARISON: Pelvis and hip radiographs 08/12/2019 TECHNIQUE: AP view of the pelvis with 2 views of the right hip FINDINGS: Right hip total joint arthroplasty demonstrates satisfactory alignment. No acute fracture or retained foreign body. Lateral skin cristian are noted with expected postsurgical soft tissue swelling and thuy p tissue air. Surgical drainage catheter noted. Demineralized appearance of the bones. Moderate left hip osteoarthritis. Degenerative changes are noted about the imaged lumbar spine. IMPRESSION: Satisfactory alignment of the right hip total joint arthroplasty. ACT 112: Negative or not required by law. The above report was generated using voice recognition software. It may contain grammatical, syntax o r spelling errors. Electronically signed by: Devante De La Rosa M.D. 08/15/2019 12:51 PM
--- NOTE | 2019-08-17 16:31 | Discharge Summary ---
Date of Service August 17, 2019 Admission HPI Per Admitting Provider The patient is a 88 year old female who presents with complaints of severe right hip pain and DJD. The patient has failed outpatient conservative treatments to this point which included NSAIDs, IA corticosteroid injection, PT/home exercise/walking program. The patient's pain and limited function have progressed to the point where they severely hinder their activities of daily living and they no longer tolerate exercise programs. They are requesting to proceed with total hip replacement surgery. Principal Diagnosis Right anterior total hip replacement Discharge Exam RLE NVSI +EHL/FHL/TA/GS SILT grossly, +2 DP pulse, compartments soft NT, dressing cdi. Constitutional WD/WN, vitals as above Discharge Data Allergies Allergy/AdvReac Type Severity Reaction Status Date / Time No Known Allergies Allergy Verified 08/12/19 06:41 Consultations 08/13/19 08:00 Consult Case Management - Discharge Planning Routine Procedures Performed Operation Date: 07/15/19 09:15 <No data on this case meets the specified criteria> Operation Date: 08/12/19 09:00 Actual Procedures p Right Anterior Total Hip Arthroplasty(Right) - Morgan Lee DO Ordered Studies 08/12/19 09:00 FL fluoroscopy <1hr Routine FL hip RT 1V Routine Hospital Course (1) Degenerative joint disease of right hip: The patient is a 88 -year-old female who presents with long standing history of severe right hip DJD and failed outpatient conservative treatments. The patient's symptoms have progressed to the point where it has been difficult to perform even normal activities of daily living. I indicated the patient for a right anterior total hip arthroplasty, the risks, benefits and complications of the procedure include but not limited to infection, bleeding, damage to bone, nerves, vessels, surrounding soft tissue, may develop blood clots, loss of function, leg length discrepancy, dislocation, failure of the components, loosening of the components, the need for additional surgery and . The patient wished to proceed with surgery at this time and informed consent was obtained. Hospital Course: On 08/12/19 the patient was taken to the operating room, adequate anesthesia administered and underwent a right anterior total hip arthroplasty. The patient tolerated the procedure well and was taken to the PACU in stable condition. Post-operatively the patient was started on a DVT ppx medication and given appropriate IV antibiotics. Consults were placed to physical therapy, occupatio nal therapy and case management. On POD#1, the patient did well overnight and their pain was well controlled. Labs were drawn and the Hgb was 9.9. The patient progressed well with PT. Dressings were changed at this time and the incision was clean, dry and intact. On POD#2, the patient continued to progress with PT. Pain well controlled, no acute issues overnight, labs drawn, Hgb 9.0. On POD#3, the patient continued to progress with PT. The patient had complaints of increased pain to right hip, XR was taken which demonstrates no structure abnormalities, fracture or dislocation. The patient had no been taking pain medication. There were no acute issues overnight, labs drawn, Hgb 9.1. The patients hospital stay was relatively uneventful and they were deemed stable by the orthopedic team and consultants to be discharged to [facility] on 08/15/19. Discharge Instructions: Upon discharge the patient is to maintain protected/partial weight bearing with assistive device through their operative extremity. They were instructed to keep the incision clean and dry at all times. The patient may shower but should not submerge the incision, avoid bathing, pools and hot tubes. The patient was given a script for pain medication and should take as instructed. The patient was given a script for DVT ppx 81mg ASA BID and should take as directed. The patient was instructed to not drive or travel for long distances until cleared to do so. If the patient develops any symptoms of fevers, chills, nausea, vomiting, increased redness, swelling, pain or drainage from the surgical site, they should notify the office and/or proceed to the nearest emergency room. The patient should follow up in 10-14 days after surgery for their routine post- operative follow-up appointment and should call the office to confirm the date and time. Postop day 3 s/p Right Anterior JASON -Pain control issues-plans will be to hold her tramadol and to give her a one- time dose of Toradol [address] will place her on 1 tablet of oxycodone every 4 hours as needed. I will discuss this with Dr. Lee. I reiterated to the patient that she needs to continue to maintain some pain medication in her system during this initial phase. If pain control is adequate later today and she is ambulating in a better fashion, we will plan for [facility] discharge [facility]. -DVT ppx: SCDs, JUAN JOSEs, 81mg ASA BID -Partial weightbearing RLE -PT/OT -PO XR demonstrates a well aligned well fixed prothesis without fracture/disloaction -am labs: as above, hgb 9.1 -DC planning - [facility] addendum: Case discussed with Dr Lee. Recheck hip xray. Continue current pain regimen as ordered above. Postop day 2 s/p Right Anterior JASON -DVT ppx: SCDs, TEDs, 81mg ASA BID -Partial weightbearing RLE -PT/OT -PO XR demonstrates a well aligned well fixed prothesis without fracture/disloaction -am labs: hgb 9.0. Continues to be asymptomatic. -DC planning -Case management has spoken to the patient and her daughters. I believe a short rehab stay prior to returning to her assisted care facility would be [facility]. Case management has discussed [facility] with a backup plan for [facility] if this is denied. Await authorization. Postop day 1 s/p Right Anterior JASON -ancef x 24 then DC. -DVT ppx: SCDs, JUAN JOSEs, 81mg ASA BID -Partial weightbearing RLE -PT/OT -PO XR demonstrates a well aligned well fixed prothesis without fracture/disloaction -am labs: hgb 9.9. -DC planning -patient unsure at this time. May require a short rehab stay prior to returning to [facility]. Total Time Total Time Spent Total Time Spent (In Minutes): >60 minutes Discharge Plan Discharge Items Patient Disposition: Transfer Inpatient Rehab Fac Reason For Visit: RIGHT HIP OSTEOARTHRITIS Discharge Diagnosis: Right anterior total hip replacement Condition on Discharge: Good Activity: Per Instructions section Lifting: Wait until after follow-up appointment Bathing: Keep incision dry Bathing Comment: No bathing, pools or hot tubs. Sexual Activity: Wait until after follow-up appointment Exercise/Sports: Wait until after follow-up appointment Driving/Machine Use: No driving. Weightbearing: Right partial Non-emergency contact: Primary Care Provider and Surgeon Call non-emergency contact if: you have any medication questions, your symptoms worsen, your pain is not controlled, your pain is worsening, your pain is unusual for you, your pain is concerning for you, you have a fever, your temperature is above 101, your wound has increased redness, your wound has increased drainage and your wound pain has increased Follow-up/Referrals: [facility] [Primary Care Provider] - Diet: Regular Addtl Attending Provider Instructions: ACTIVITY RECOMMENDATIONS: SELF CARE INSTRUCTIONS AFTER TOTAL HIP REPLACEMENT : Direct Anterior Approach Until the incision and soft tissues around your hip have healed, there is a possibility that the hip prosthesis could dislocate. A. Hip flexion ( Up & Down out of chair or steps ) may be difficult. This is normal. B. Numbness in front of the thigh is also normal for a few weeks. C. Use hand rails when walking on stairs. D. Wear low heeled shoes with non-slip soles. E. Be sure that your floors are free of things that could trip you - throw rugs, electrical cords, small objects. Avoid wet and waxed floors, especially with crutches and canes. F. Try to walk several times a day with rest periods between. G. Continue with all the exercises taught to you in the hospital. Again, make walking a part of your daily routine. SPECIAL CARE INSTRUCTIONS: VERY IMPORTANT TO READ AND REVIEW A. You may still be at risk for phlebitis and blood clots. 1. Wear surgical stockings (JUAN JOSE hose) for 2 weeks after surgery to improve circulation and reduce swelling. 2. Take Aspirin 81mg twice daily for 4 weeks or as directed by your doctor. This is your blood thinner. 3. High risk patients may be prescribed a stronger blood thinner if necessary. 4. If you are on Coumadin normally, your family doctor/audio visual project manager should monitor your blood work. Expect a phone call the day of or the day after bloodwork is drawn to adjust your dosage. B. You must take antibiotics before having dental work, bladder, bowel and other surgery. Your doctor will provide you with a permanent card to carry describing precautions. C. Call [facility] if you have a fever, redness or swelling around the incision, cloudy drainage from incision, or sudden increase in pain in your hip, not relieved by your regular pain medication. D. Please call the office at if you have any concerns or questions about your operation or recovery. * YOU MAY SHOWER, NO TUB BATHS UNTIL CLEARED BY YOUR DOCTOR. - Keep an extra close eye on the top portion of your incision. Be sure to keep clean & dry. * WEAR JUAN JOSE HOSE 20 HOURS PER DAY FOR 2 WEEKS. * CONTINUE TO UTILIZE ASSISTIVE DEVICE AND PROTECTED WEIGHT BEARING ON YOUR OPERATIVE EXTREMITY. * MOST PATIENTS WILL HAVE HOME NURSING FOR THERAPY. IF YOU DECIDE TO DO OUTPATIENT PHYSICAL THERAPY, PLEASE SCHEDULE THIS 3 TIMES PER WEEK. *PREVENA incisional vac is a special dressing covering your incision. This dressing provides a sterile dry environment while you are healing. The dressing is to be left in place for 7 days post-operatively. Your home nurse or surgeon will remove. If you develop any redness or blisters or have any questions notify your surgeon immediately. There may be a small piece of suture material at one end of your incision. Do not pull or trim this. If it is bothersome or catching on clothing, you may cover it with a band-aid. FOLLOW UP VISIT: If appointment is not already scheduled: Please call [facility] to make a follow-up appointment for 2 weeks after your surgery at . Pending Studies at Discharge: No Stand-Alone Forms: My [facility] [employer], Opioid Pain Management, Smoking Cessation Skilled Items Patient informed of condition?: Yes DNR: No Discharge Level of Care: Other Communicable Disease: No Discharge Prognosis: Stable Lines: None Urinary Catheter: No Medications and DC Order Prescriptions: New aspirin [Ecotrin Low Strength] 81 mg Tablet,Delayed Release (Dr/Ec) 81 mg PO BID Qty: 56 RF: 0 tramadol 50 mg Tablet 50 mg PO Q6H MDD 6 tabs PRN (Reason: pain) Qty: 30 RF: 0 acetaminophen 500 mg Tablet 1,000 mg PO Q8 PRN (Reason: pain/fevers) Qty: 90 RF: 0 sennosides [Senokot] 8.6 mg Tablet 17.2 mg PO HS PRN (Reason: constipation) Qty: 28 RF: 0 oxycodone 5 mg Tablet 5 mg PO Q4H PRN (Reason: pain) Qty: 18 RF: 0 Continued meloxicam 15 mg Tablet 15 mg PO QAM RF: 0 lisinopril 2.5 mg Tablet 2.5 mg PO QAM RF: 0 acetaminophen [Tylenol] 325 mg Capsule 325 mg PO Q6H PRN (Reason: Pain) RF: 0 Discharge Orders: Discharge Order (Routine); Ordered 08/15/19 Ordered By: Edy Fischer/Other Patient Handouts: Surgery Prevent DVT After, Safety Hip Into and Out Bed, Safety Hip Into and Out Car, Replacement Total Hip Activity Admission Data Admit Date/Time: 08/12/19 12:28 Attending Provider: Morgan Lee Admit Provider: Morgan Lee Primary Care Provider: [facility] Other Providers: [facility] ; Tayla Diggs at [place] ; [place], [place] Date/Time DO NOT enter until pt leaves facility: 08/15/19 16:00
== END 2019-08-15 16:00 | DRG 470 ==
LOC: ASU 06:02 → 3E 12:28